=== PATIENT | female | born 2000 | race Hispanic/Latino ===

== ENCOUNTER 2020-03-26 11:32 | Emergency (ER) | payer OTHER ==
[2020-03-26] MEDS ORDERED: IBUPROFEN 400 MG TABLET ONE (11:51)
== END 2020-03-26 12:30 | disposition home or self-care (01) ==
LOC: EDH 11:32
DX: S60.021A Contusion of right index finger without damage to nail, initial encounter (principal); Z72.0 Tobacco use; W22.8XXA Striking against or struck by other objects, initial encounter; Y93.E9 Activity, other interior property and clothing maintenance; Y92.89 Other specified places as the place of occurrence of the external cause; Y99.8 Other external cause status
CPT/HCPCS: 73130

== ENCOUNTER 2020-05-25 08:22 | Emergency (ER) | payer BC, OTHER ==
[2020-05-25 08:48] LABS: BASOPHILS % (AUTO) 0.4 % (0.0-5.0); EOSINOPHILS % (AUTO) 3.8 % (0.0-8.0); HEMATOCRIT 38.4 % (36-48); LYMPHOCYTES % (AUTO) 34.8 % (21.0-51.0); MEAN CORPUSCULAR HEMOGLOBIN 27.9 pg (27.0-33.0); MEAN CORPUSCULAR HGB CONC 32.8 g/dL (32.0-36.0); MEAN CORPUSCULAR VOLUME 85.1 fL (80-100); MONOCYTES % (AUTO) 7.1 % (3.0-13.0); NEUTROPHILS % (AUTO) 53.4 % (40.0-77.0); PLATELET COUNT (AUTO) 342 K/uL (130-400); RED BLOOD CELL COUNT(AUTO) 4.51 MIL/uL (4.00-5.50); RED CELL DISTRIBUTION WIDTH 13.2 % (11.0-15.5); WHITE BLOOD COUNT (AUTO) 7.6 K/uL (4.8-10.8)
[2020-05-25 09:03] LABS: CREATININE 0.6 mg/dL (0.5-1.5); POTASSIUM 3.9 mmol/L (3.5-5.1)
[2020-05-25 09:08] LABS: ALBUMIN 3.6 g/dL (3.5-5.0); BILIRUBIN,TOTAL 0.1 mg/dL (0.2-1.0); TOTAL PROTEIN, SERUM 7.2 g/dL (6.0-8.3)
[2020-05-25] MEDS ORDERED: KETOROLAC TROMETHAMINE 15MG/ML ONE (09:59)
== END 2020-05-25 10:48 | disposition home or self-care (01) ==
LOC: EDH 08:22
DX: R07.89 Other chest pain (principal)
CPT/HCPCS: 36415; 71045; 80053; 81025; 84484; 85025; 85378; 93005; 96374; 99285; J1885

== ENCOUNTER 2020-07-26 21:31 | Emergency (ER) | payer BC ==
[2020-07-26 22:25] LABS: BASOPHILS % (AUTO) 0.5 % (0.0-5.0); EOSINOPHILS % (AUTO) 2.9 % (0.0-8.0); HEMATOCRIT 43.6 % (36-48); LYMPHOCYTES % (AUTO) 31.5 % (21.0-51.0); MEAN CORPUSCULAR HEMOGLOBIN 28.1 pg (27.0-33.0); MEAN CORPUSCULAR VOLUME 85.2 fL (80-100); MONOCYTES % (AUTO) 6.2 % (3.0-13.0); NEUTROPHILS % (AUTO) 58.5 % (40.0-77.0); PLATELET COUNT (AUTO) 390 K/uL (130-400); RED BLOOD CELL COUNT(AUTO) 5.12 MIL/uL (4.00-5.50); WHITE BLOOD COUNT (AUTO) 11.2 K/uL (4.8-10.8)
[2020-07-26] MEDS ORDERED: MORPHINE SULFATE 4 MG/1ML SYG ONE (22:32)
[2020-07-26] MEDS ORDERED: KETOROLAC TROMETHAMINE 30MG/ML ONE (22:32)
[2020-07-26] MEDS ORDERED: SODIUM CHLORIDE 0.9% 1000ML 1,000 ML IV ONE (22:33)
[2020-07-26] MEDS ORDERED: ONDANSETRON HCL 4 MG/2 ML VIAL ONE (22:33)
[2020-07-26 22:35] LABS: APPEARANCE,URINE Clear (CLEAR); BILIRUBIN,URINE Negative (NEGATIVE); COLOR,URINE Yellow (YELLOW); GLUCOSE, URINE (UA) Negative (NEGATIVE); KETONES,URINE Negative (NEGATIVE); LEUKOCYTE ESTERASE ,URINE Negative (NEGATIVE); NITRATE,URINE Negative (NEGATIVE); OCCULT BLOOD,URINE Large (NEGATIVE); PROTEIN,URINE Negative (NEGATIVE); UROBILINOGEN,URINE 0.2 mg/dL (0.2-1.0)
[2020-07-26 22:36] LABS: CREATININE 0.6 mg/dL (0.5-1.5); POTASSIUM 4.1 mmol/L (3.5-5.1)
[2020-07-26 22:38] LABS: HCG,QUAL RESULT NEGATIVE (NEGATIVE)
[2020-07-26 22:40] LABS: ALBUMIN 4.7 g/dL (3.5-5.0); BILIRUBIN,TOTAL 0.2 mg/dL (0.2-1.0)
[2020-07-26 22:44] LABS: BACTERIA,URINE Rare /HPF (None Seen); WBC,URINE 0-1 /HPF (0-1)
[2020-07-26 22:45] LABS: MUCUS,URINE Few LPF (None Seen); SQUAMOUS EPITHELIAL CELL,UR 0-2 /HPF (0-2)
[2020-07-26] MEDS ORDERED: IOHEXOL-350 75 ML VIAL IV ONE (22:50)
[2020-07-26] MEDS ORDERED: LIDOCAINE HCL 2% VISCOUS 15 ML UDCUP ONE (22:58)
== END 2020-07-27 00:10 | disposition home or self-care (01) ==
LOC: EDH 21:31
DX: K64.8 Other hemorrhoids (principal)
CPT/HCPCS: 36415; 74177; 80053; 81001; 81025; 83690; 85025; 96361; 96374; 96375; 99285; J1885; J2270; J2405; J7030; Q9967

== ENCOUNTER 2021-10-05 09:10 | Emergency (ER) | payer BC, OTHER ==
[~2021-10-05] VITALS: Ht 152.4 cm; Wt 99.8 kg
[2021-10-05] MEDS ORDERED: GUAIFENESIN-CODEINE 5 ML SYRUP PO ONE (09:30)
[2021-10-05] MEDS ORDERED: DEXAMETHASONE 4 MG TAB PO SCH (09:30)
[2021-10-05] MEDS ORDERED: AZIT1PAC7 PO (10:51)
[2021-10-05] MEDS ORDERED: METH4TAB3 PO (10:51)
[2021-10-05] MEDS ORDERED: LORA10TA7 PO (10:51)
[2021-10-05 11:03] VITALS: BP 120/75
== END 2021-10-05 11:17 | disposition home or self-care (01) ==
LOC: EDH 09:10
DX: J30.9 Allergic rhinitis, unspecified (principal); H65.92 Unspecified nonsuppurative otitis media, left ear; Z20.822 Contact with and (suspected) exposure to COVID-19; Z79.52 Long term (current) use of systemic steroids
CPT/HCPCS: 87635; 87804 ×2; 99283; C9803; J8540

== ENCOUNTER 2022-12-17 23:49 | Emergency (ER) | payer BC, OTHER ==
[~2022-12-17] VITALS: Ht 152.4 cm; Wt 95.7 kg
[~2022-12-17 23:49] MED LIST: AZIT1PAC7 PO; LORA10TA7 PO; METH4TAB3 PO
[2022-12-18 03:09] LABS: BASOPHILS # (AUTO) 0.05 K/uL (0.00-0.20); BASOPHILS % (AUTO) 0.3 % (0.0-5.0); EOSINOPHILS # (AUTO) 0.34 K/uL (0.00-0.70); EOSINOPHILS % (AUTO) 2.4 % (0.0-8.0); HEMATOCRIT 38.2 % (36-48); IMMATURE GRANULOCYTE ABSOLUTE 0.08 K/uL (0-1); LYMPHOCYTES # (AUTO) 2.4 K/uL (1.0-4.8); LYMPHOCYTES % (AUTO) 16.7 % (21.0-51.0); MEAN CORPUSCULAR HEMOGLOBIN 27.7 pg (27.0-33.0); MEAN CORPUSCULAR HGB CONC 32.7 g/dL (32.0-36.0); MEAN CORPUSCULAR VOLUME 84.7 fL (79-99); MONOCYTES # (AUTO) 0.9 K/uL (0.1-1.0); MONOCYTES % (AUTO) 6.2 % (3.0-13.0); NEUTROPHILS # (AUTO) 10.6 K/uL (1.8-7.7); NEUTROPHILS % (AUTO) 73.8 % (40.0-77.0); PLATELET COUNT (AUTO) 330 K/uL (130-400); RED BLOOD CELL COUNT(AUTO) 4.51 MIL/uL (4.00-5.50); RED CELL DISTRIBUTION WIDTH 12.9 % (11.0-15.5); WHITE BLOOD COUNT (AUTO) 14.4 K/uL (4.8-10.8)
[2022-12-18] MEDS ORDERED: ONDANSETRON 4MG INJ ONE (03:09)
[2022-12-18] MEDS ORDERED: ONDANSETRON 4MG INJ IVP STA (03:17)
[2022-12-18 03:23] LABS: ALANINE AMINOTRANSFERASE 27 U/L (12-78); ALBUMIN 3.4 g/dL (3.5-5.0); ASPARTATE AMINOTRANSFERASE 14 U/L (10-37); BILIRUBIN,TOTAL 0.2 mg/dL (0.2-1.0); CARBON DIOXIDE 28 mmol/L (21-32); CHLORIDE 104 mmol/L (101-111); CREATININE 0.6 mg/dL (0.5-1.5); GLOMERULAR FILTR. RATE CALC 129 mL/min (>90); GLUCOSE,RANDOM 110 mg/dL (70-105); SODIUM SERUM 140 mmol/L (136-145); TOTAL PROTEIN, SERUM 6.6 g/dL (6.0-8.3); UREA NITROGEN, BLOOD 21 mg/dL (7-18)
[2022-12-18 03:24] LABS: LIPASE < 50 U/L (114-286)
[2022-12-18] MEDS ORDERED: 0.9%NACL 1000ML 2,000 ML IV ONE (03:30)
[2022-12-18] MEDS ORDERED: PANTOPRAZOLE 40 MG/VIAL IVP ONE (03:30)
[2022-12-18] MEDS ORDERED: MAG/ALUM/SIMETH 30 ML UDCUP PO ONE (03:30)
[2022-12-18 03:37] LABS: SARS-CoV-2, RNA, NAAT NEGATIVE SARS CoV-2 (NEGATIVE)
[2022-12-18 03:47] LABS: APPEARANCE,URINE CLEAR (CLEAR); BILIRUBIN,URINE NEGATIVE (NEGATIVE); COLOR,URINE LIGHT-YELLOW (YELLOW); GLUCOSE, URINE (UA) NEGATIVE (NEGATIVE); KETONES,URINE NEGATIVE (NEGATIVE); LEUKOCYTE ESTERASE ,URINE NEGATIVE Leu/uL (NEGATIVE); NITRATE,URINE NEGATIVE (NEGATIVE); OCCULT BLOOD,URINE LARGE (NEGATIVE); PH,URINE 6.5 (5.0-8.0); PROTEIN,URINE 20 mg/dL (NEGATIVE); UROBILINOGEN,URINE 0.2 mg/dL (0.2-1.0)
[2022-12-18 03:49] LABS: ADD UA MICROSCOPIC YES
[2022-12-18 03:53] LABS: MUCUS,URINE RARE LPF (None Seen); SQUAMOUS EPITHELIAL CELL,UR RARE /HPF (0-2); WBC,URINE 0-1 /HPF (0-1)
[2022-12-18 03:58] LABS: INFLUENZA TYPE A NEGATIVE FOR TYPE A (NEG); INFLUENZA TYPE B NEGATIVE FOR TYPE B (NEG)
[2022-12-18 04:03] LABS: HCG,QUALITATIVE URINE NEGATIVE (NEGATIVE)
[2022-12-18] MEDS ORDERED: PANT40TA55 PO (05:53)
[2022-12-18 06:10] VITALS: BP 125/72; PULSE 80; RESP 20; O2SAT 99
== END 2022-12-18 06:13 | disposition home or self-care (01) ==
LOC: EDH 23:49
DX: K76.0 Fatty (change of) liver, not elsewhere classified (principal); R10.13 Epigastric pain; Z20.822 Contact with and (suspected) exposure to COVID-19; Z79.899 Other long term (current) drug therapy; Z98.890 Other specified postprocedural states
CPT/HCPCS: 99285; 87635; 80053; 83690; 85025; 87804 ×2; 81001; 81025; 36415; 96374; 76705; 96361; 96375; C9803; J7030; J2405; C9113

== ENCOUNTER 2023-01-08 10:19 | Emergency (ER) | payer OTHER ==
[~2023-01-08] VITALS: Ht 152.4 cm; Wt 97.5 kg
[~2023-01-08 10:19] MED LIST changes: +PANT40TA55 PO
[2023-01-08 11:45] LABS: BASOPHILS # (AUTO) 0.05 K/uL (0.00-0.20); BASOPHILS % (AUTO) 0.4 % (0.0-5.0); EOSINOPHILS % (AUTO) 2.4 % (0.0-8.0); HEMATOCRIT 39.2 % (36-48); IMMATURE GRANULOCYTE ABSOLUTE 0.06 K/uL (0-1); LYMPHOCYTES # (AUTO) 2.4 K/uL (1.0-4.8); LYMPHOCYTES % (AUTO) 19.2 % (21.0-51.0); MEAN CORPUSCULAR HEMOGLOBIN 28.4 pg (27.0-33.0); MEAN CORPUSCULAR HGB CONC 33.7 g/dL (32.0-36.0); MEAN CORPUSCULAR VOLUME 84.5 fL (79-99); MONOCYTES # (AUTO) 0.7 K/uL (0.1-1.0); MONOCYTES % (AUTO) 5.3 % (3.0-13.0); NEUTROPHILS # (AUTO) 8.9 K/uL (1.8-7.7); NEUTROPHILS % (AUTO) 72.2 % (40.0-77.0); PLATELET COUNT (AUTO) 368 K/uL (130-400); RED BLOOD CELL COUNT(AUTO) 4.64 MIL/uL (4.00-5.50); RED CELL DISTRIBUTION WIDTH 13.2 % (11.0-15.5); WHITE BLOOD COUNT (AUTO) 12.4 K/uL (4.8-10.8)
[2023-01-08 11:49] LABS: APPEARANCE,URINE CLEAR (CLEAR); BILIRUBIN,URINE NEGATIVE (NEGATIVE); COLOR,URINE LIGHT-YELLOW (YELLOW); GLUCOSE, URINE (UA) NEGATIVE (NEGATIVE); KETONES,URINE NEGATIVE (NEGATIVE); LEUKOCYTE ESTERASE ,URINE NEGATIVE Leu/uL (NEGATIVE); NITRATE,URINE NEGATIVE (NEGATIVE); OCCULT BLOOD,URINE NEGATIVE (NEGATIVE); PROTEIN,URINE NEGATIVE (NEGATIVE); UROBILINOGEN,URINE 0.2 mg/dL (0.2-1.0)
[2023-01-08 11:51] LABS: ADD UA MICROSCOPIC NO
[2023-01-08 11:52] LABS: HCG,QUALITATIVE URINE NEGATIVE (NEGATIVE)
[2023-01-08 11:54] LABS: CREATININE 0.6 mg/dL (0.5-1.5); POTASSIUM 3.8 mmol/L (3.5-5.1)
[2023-01-08 11:59] LABS: ALBUMIN 3.4 g/dL (3.5-5.0); BILIRUBIN,TOTAL 0.2 mg/dL (0.2-1.0); TOTAL PROTEIN, SERUM 6.5 g/dL (6.0-8.3)
[2023-01-08] MEDS ORDERED: ACETAMINOPHEN 500 MG TABLET PO ONE (15:00)
[2023-01-08 15:43] VITALS: BP 126/74; PULSE 71; RESP 16; O2SAT 98
[2023-01-08] MEDS ORDERED: LINA290C PO (16:08)
[2023-01-08] MEDS ORDERED: DICY20TA2 PO (16:08)
== END 2023-01-08 16:30 | disposition home or self-care (01) ==
LOC: EDH 10:19
DX: K58.9 Irritable bowel syndrome, unspecified (principal); Z79.899 Other long term (current) drug therapy; Z98.890 Other specified postprocedural states
CPT/HCPCS: 36415; 74176; 80053; 81003; 81025; 85025

== ENCOUNTER 2024-07-05 12:14 | Emergency (ER) | payer BC ==
[~2024-07-05] VITALS: Ht 152.4 cm; Wt 83.9 kg
[~2024-07-05 12:14] MED LIST changes: +DICY20TA2 PO; +LINA290C PO
[2024-07-05 12:42] LABS: BASOPHILS # (AUTO) 0.05 K/uL (0.00-0.20); BASOPHILS % (AUTO) 0.4 % (0.0-5.0); EOSINOPHILS # (AUTO) 0.27 K/uL (0.00-0.70); IMMATURE GRANULOCYTE ABSOLUTE 0.05 K/uL (0-1); MEAN CORPUSCULAR HEMOGLOBIN 27.8 pg (27.0-33.0); MEAN CORPUSCULAR HGB CONC 32.4 g/dL (32.0-36.0); MEAN CORPUSCULAR VOLUME 85.9 fL (79-99); MONOCYTES # (AUTO) 0.7 K/uL (0.1-1.0); MONOCYTES % (AUTO) 5.4 % (3.0-13.0); NEUTROPHILS # (AUTO) 10.4 K/uL (1.8-7.7); NEUTROPHILS % (AUTO) 76.8 % (40.0-77.0); PLATELET COUNT (AUTO) 469 K/uL (130-400); RED BLOOD CELL COUNT(AUTO) 4.89 MIL/uL (4.00-5.50); RED CELL DISTRIBUTION WIDTH 13.5 % (11.0-15.5); WHITE BLOOD COUNT (AUTO) 13.6 K/uL (4.8-10.8)
--- NOTE | 2024-07-05 12:43 | ERN ---
General Chief Complaint: Abdominal Pain Stated Complaint: CHEST PAINS Time Seen by MD: 12:15 Time Seen by Midlevel: 12:15 Source: patient History of Present Illness Initial Comments 24 y/o female who presents to the emergency department due to abdominal pain onset two days. Patient reports nausea and pain radiating to the chest but denies any vomiting, diarrhea or further associated symptoms. Denies any significant past medical history. Allergies: Coded Allergies: No Known Drug Allergies (Unverified Allergy, Unknown, 12/03/13) Home Meds Active Scripts Omeprazole (Omeprazole) 10 Mg Capsule.dr, 10 MG PO DAILY for 7 Days, #7 CAP Prov:TYRESE HOWELL 07/05/24 Dicyclomine HCl (Bentyl) 20 Mg Tab, 20 MG PO DAILY, #30 TAB Prov:CLAUDIA BLAKE 01/08/23 Linaclotide (Linzess) 290 Mcg Capsule, 290 MCG PO DAILY for 30 Days, #30 CAP Prov:CLAUDIA BLAKE 01/08/23 Pantoprazole Sodium (Protonix) 40 Mg Ectab, 40 MG PO DAILY for 30 Days, #30 TAB.EC 0 Refills Prov:COMPA LISA MD 12/18/22 Loratadine (Loratadine) 10 Mg Tablet, 10 MG PO DAILY for 14 Days, #14 TAB Prov:FADIA ALVARADO MD 10/05/21 Azithromycin (Azithromycin) 1 Gm Packet, 1 GM PO AD for 5 Days, #1 PKT Prov:FADIA ALVARADO MD 10/05/21 Methylprednisolone (Medrol) 4 Mg Tab.ds.pk, 4 MG PO AD for 5 Days, #1 KIT Prov:FADIA ALVARADO MD 10/05/21 Past Medical History Past Medical History: IBS Past Surgical History: Other Surgical History Other: ACL Social History Social History: Drugs, Other Female( History) History: Not Applicable LMP: Jul 14, 2023 ROS Dictation Constitutional: Negative for fever,chills, and weight loss Eyes: Negative for injury, pain,redness, and discharge ENT: Negative for injury,pain or swelling Cardiovascular: Negative for chest pain, palpitations, and edema Respiratory: Negative for shortness of breath, cough, and wheezing, Abdomen/GI: Positive for abdominal pain, nausea Negative for vomiting, diarrhea, and constipation Back: Negative for injury and pain : Negative for painful urination, bleeding or discharge MS/Extremity: Negative for injury and deformity Skin: Negative for rash, and discoloration Neuro: Negative for headache, weakness, numbness, tingling, and seizure Psych: Negative for suicide ideation, homicidal ideation, and hallucinations Physical Exam Physical Exam Dictation General: awake, alert, no acute distress Head/Face: Normocephalic, atraumatic Eyes: PERRL, EOMI, normal conjunctiva ENT: oral cavity clear, oral mucosa moist Neck: Normal range of motion, supple Cardiovascular: RRR, normal S1/S2 Respiratory: CTAB, no respiratory distress, no rales or wheezes Abdomen: Soft, non-tender, non-distended, no guarding or rebound. Skin: Warm, dry, normal turgor, no rash MS/Extremity: Pulses equal, no cyanosis, neurovascular intact, FROM Neuro: COAx4, GCS 15, no neurological deficits, normal gait, Psych: Normal behavior, mood, and affect normal Results Laboratory and Microbiology Lab and Micro Result Laboratory Tests Test 07/05/24 12:34 07/05/24 17:04 White Blood Count 13.6 K/uL (4.8-10.8) H Red Blood Count 4.89 MIL/uL (4.00-5.50) Hemoglobin 13.6 g/dL (12.0-16.0) Hematocrit 42.0 % (36-48) Mean Corpuscular Volume 85.9 fL (79-99) Mean Corpuscular Hemoglobin 27.8 pg (27.0-33.0) Mean Corpuscular Hemoglobin Concent 32.4 g/dL (32.0-36.0) Red Cell Distribution Width 13.5 % (11.0-15.5) Platelet Count 469 K/uL (130-400) H Mean Platelet Volume 10.3 fL (7.5-10.5) Immature Granulocyte % (Auto) 0.4 % (0-1) Neutrophils (%) (Auto) 76.8 % (40.0-77.0) Lymphocytes (%) (Auto) 15.0 % (21.0-51.0) L Monocytes (%) (Auto) 5.4 % (3.0-13.0) Eosinophils (%) (Auto) 2.0 % (0.0-8.0) Basophils (%) (Auto) 0.4 % (0.0-5.0) Neutrophils # (Auto) 10.4 K/uL (1.8-7.7) H Lymphocytes # (Auto) 2.0 K/uL (1.0-4.8) Monocytes # (Auto) 0.7 K/uL (0.1-1.0) Eosinophils # (Auto) 0.27 K/uL (0.00-0.70) Basophils # (Auto) 0.05 K/uL (0.00-0.20) Absolute Immature Granulocyte (auto 0.05 K/uL (0-1) Nucleated Red Blood Cells 0.0 % (0.0-0.19) Sodium Level 139 mmol/L (136-145) Potassium Level 3.6 mmol/L (3.5-5.1) Chloride Level 102 mmol/L (101-111) Carbon Dioxide Level 30 mmol/L (21-32) Blood Urea Nitrogen 11 mg/dL (7-18) Creatinine 0.6 mg/dL (0.5-1.0) Glomerular Filtration Rate Calc 128 mL/min (>90) Random Glucose 103 mg/dL (70-105) Total Calcium 9.5 mg/dL (8.5-10.1) Total Bilirubin 0.4 mg/dL (0.2-1.0) Aspartate Amino Transf (AST/SGOT) 10 U/L (10-37) Alanine Aminotransferase (ALT/SGPT) 18 U/L (12-78) Alkaline Phosphatase 74 U/L (50-136) Troponin I High Sensitivity < 4 ng/L (4-50) L Total Protein 7.7 g/dL (6.0-8.3) Albumin 4.1 g/dL (3.5-5.0) Lipase 23 U/L (16-77) Urine Color YELLOW (YELLOW) Urine Appearance CLEAR (CLEAR) Urine pH 8.0 (5.0-8.0) Urine Specific [place] 1.025 (1.001-1.031) Urine Protein 30 mg/dL (NEGATIVE) H Urine Glucose (UA) NEGATIVE mg/dL (NEGATIVE) Urine Ketones 20 mg/dL (NEGATIVE) H Urine Occult Blood NEGATIVE (NEGATIVE) Urine Nitrate NEGATIVE (NEGATIVE) Urine Bilirubin NEGATIVE mg/dL (NEGATIVE) Urine Urobilinogen 0.2 mg/dL (0.2-1.0) Urine Leukocyte Esterase NEGATIVE Ana/uL Urine RBC 2-5 /HPF (0-1) H Urine WBC 2-5 /HPF (0-1) H Urine Squamous Epithelial Cells RARE /HPF (0-2) Urine Bacteria None /HPF (None Seen) Urine Other Casts 1 /LPF (None Seen) Urine HCG, Qualitative NEGATIVE (NEGATIVE) Urine Opiates Screen NEGATIVE (NEGATIVE) Urine Barbiturates Screen NEGATIVE (NEGATIVE) Urine Phencyclidine Screen NEGATIVE (NEGATIVE) Urine Amphetamines Screen NEGATIVE (NEGATIVE) Urine Benzodiazepines Screen NEGATIVE (NEGATIVE) Urine Cocaine Screen NEGATIVE (NEGATIVE) Urine Marijuana (THC) Screen POSITIVE (NEGATIVE) H Labs Reviewed?: Yes EKG/XRAY/US/CT/MRI EKG Comment Date:07/05/24 Time: 12:25 Ventricular rate: 69 EKG interpretation: Normal sinus rhythm, no STEMI, normal EKG Reviewed by ED Attending MDM MDM: Differential diagnosis: Acid reflux, gastritis, GERD Rationale: 24 y/o female who presents to the emergency department due to abdominal pain onset two days. Patient reports nausea and pain radiating to the chest but denies any vomiting, diarrhea or further associated symptoms. Denies any significant past medical history. Per physical examination patient is in no acute distress, nonlabored breathing, mild epigastric tenderness radiating to the chest. Labs obtained are nonspecific, hepatic function within normal limits, lipase normal, troponin negative, EKG within normal limits. GI cocktail administered in the ED and on r e-examination patient verbalized pain had resolved. Patient was educated on findings and diagnosis. Advised to follow up with PCP. Return to the emergency department if any worsening symptoms. Patient verbalized understanding. Patient stable for discharge. There are no social concerns with this patient. I independently interpreted the test that were performed, results were reviewed by me and considered findings on radiology if ordered. Medical management and examination interpretation discussions were had by me with other qualified healthcare professionals as indicated for the patient's care. ED Course Orders Procedure Category Date Status Time Cbc With Differential LAB 07/05/24 Complete 12:23 Comprehensive LAB 07/05/24 Complete Metabolic Panel 12:23 Lipase LAB 07/05/24 Complete 12:23 Urinalysis LAB 07/05/24 Complete W/Microscopic 12:23 ,Urine Test LAB 07/05/24 Complete 12:23 Drug Screen Urine LAB 07/05/24 Complete 12:23 Mag/Alum/Simeth 30ml PHA 07/05/24 Complete (Maalox Plus 30ml) 12:30 Lidocaine Hcl 2% PHA 07/05/24 Complete Viscous (Lidocaine Hcl 12:30 Pantoprazole 40mg Tab PHA 07/05/24 Complete (Protonix 40mg Tab 12:30 12 Lead Ekg Tracing- EKG 07/05/24 Complete Technical 12:23 Troponin I High LAB 07/05/24 Complete Sensitivity 12:23 Current Medications Medications (Trade) Dose Ordered Sig/Dolores Route PRN Reason Start Time Stop Time Status Last Admin Dose Admin Al Hydroxide/Mg Hydroxide (MAALox PLUS 30ML) 30 ml ONCE ONCE PO 07/05/24 12:30 07/05/24 12:31 DC 07/05/24 16:03 Lidocaine HCl (Lidocaine HCl 2% Viscous) 10 ml ONCE ONCE PO 07/05/24 12:30 07/05/24 12:31 DC 07/05/24 16:04 Pantoprazole Sodium (PROTonix 40MG TAB) 40 mg ONCE ONCE PO 07/05/24 12:30 07/05/24 12:31 DC 07/05/24 16:04 Vital Signs Date Time Temp Pulse Resp B/P (MAP) Pulse Ox O2 Delivery O2 Flow Rate FiO2 07/05/24 17:57 98.2 60 16 124/74 98 Room Air* 0 21 07/05/24 15:56 98.4 62 16 126/75 98 Room Air* 0 21 07/05/24 12:17 98.4 63 16 128/78 97 Room Air 0 DX & DISP Disposition: Discharge Departure Impression: Primary Impression: Acid reflux Additional Impression: GERD (gastroesophageal reflux disease) Condition: Stable Scripts Omeprazole (Omeprazole) 10 Mg Capsule. 10 MG PO DAILY for 7 Days, #7 CAP Prov: TYRESE HOWELL 07/05/24 Additional Instructions: Discharge home. Rest. Follow up with primary care in 24 hours. Return to the ER for any acute changes or worsening symptoms. If any medications were prescribed take as directed. Okay to continue home medications unless otherwise discussed during your visit in the emergency room today. Patient was also advised to follow-up with primary care physician in 1 to 2 days for continued monitoring. Referrals: NONE (PCP) I participated in the following activities of this patient's care: For this patient encounter, I reviewed the PA or LOSS PREVENTION OPERATIONS MANAGER documentation, treatment plan, and m edical decision making. I did not have [id number] time with this patient. I will sign as the reviewing DrJessica And agree with the treatment plan and disposition. TYRESE HOWELL Jul 05, 2024 12:43
--- NOTE | 2024-07-05 13:01 | EKG ---
[facility] Test Date: 2024-07-05 Test Time: 12:25:24 Pat Name: ERICK ARTEAGA Department: ED Room: Gender: F Wheel Setter: [id number] : 2000 Requested By: TYRESE HOWELL Order Number: [id number] Reading MD: Bk Bravo Measurements Intervals [place] Rate: 69 P: 44 NE: 147 QRS: 55 QRSD: 93 T: 14 QT: 427 QTc: 456 Interpretive Statements Sinus rhythm Compared to ECG 05/25/2020 08:34:33 No significant changes Electronically Signed On 07-06-2024 06:56:43 SAS ANALYST by Bk Bravo Please click the below link to view image of tracing.
[2024-07-05 13:42] LABS: ALBUMIN 4.1 g/dL (3.5-5.0); BILIRUBIN,TOTAL 0.4 mg/dL (0.2-1.0); CREATININE 0.6 mg/dL (0.5-1.0); POTASSIUM 3.6 mmol/L (3.5-5.1); TOTAL PROTEIN, SERUM 7.7 g/dL (6.0-8.3)
[2024-07-05] MEDS: MAG/ALUM/SIMETH 30 ML UDCUP PO ONE (16:03)
[2024-07-05] MEDS: LIDOCAINE HCL 2% VISCOUS 15 ML UDCUP PO ONE (16:04)
[2024-07-05] MEDS: PANTOPrazole 40 MG TAB DR PO ONE (16:04)
[2024-07-05 17:31] LABS: APPEARANCE,URINE CLEAR (CLEAR); BILIRUBIN,URINE NEGATIVE (NEGATIVE); COLOR,URINE YELLOW (YELLOW); GLUCOSE, URINE (UA) NEGATIVE (NEGATIVE); KETONES,URINE 20 mg/dL (NEGATIVE); LEUKOCYTE ESTERASE ,URINE NEGATIVE Leu/uL (NEGATIVE); NITRATE,URINE NEGATIVE (NEGATIVE); OCCULT BLOOD,URINE NEGATIVE (NEGATIVE); PROTEIN,URINE 30 mg/dL (NEGATIVE); UROBILINOGEN,URINE 0.2 mg/dL (0.2-1.0)
[2024-07-05] MEDS ORDERED: OMEP10CA5 PO (17:31)
[2024-07-05 17:36] LABS: HCG,QUALITATIVE URINE NEGATIVE (NEGATIVE)
[2024-07-05 17:38] LABS: MUCUS,URINE MOD LPF (None Seen); OTHER CASTS, URINE 1 /LPF (None Seen); SQUAMOUS EPITHELIAL CELL,UR RARE /HPF (0-2)
[2024-07-05 17:39] LABS: AMPHET/METH SCREEN,URINE NEGATIVE (NEGATIVE); BARBITURATE SCREEN, URINE NEGATIVE (NEGATIVE); BENZODIAZEPINES SCREEN,URINE NEGATIVE (NEGATIVE); CANNABINOID SCREEN,URINE POSITIVE (NEGATIVE); COCAINE SCREEN,URINE NEGATIVE (NEGATIVE); OPIATE SCREEN,URINE NEGATIVE (NEGATIVE); PHENCYCLIDINE SCREEN,URINE NEGATIVE (NEGATIVE)
[2024-07-05 17:57] VITALS: BP 124/74; PULSE 60; RESP 16; TEMP 98.3; O2SAT 98
== END 2024-07-05 18:05 | disposition home or self-care (01) ==
LOC: EDH 12:14
DX: K21.9 Gastro-esophageal reflux disease without esophagitis (principal); Z79.899 Other long term (current) drug therapy
CPT/HCPCS: 36415; 80053; 80305; 81001; 81025; 83690; 84484; 85025; 93005; 99284